=== PATIENT | male | born 1990 | race Caucasian/White ===

== ENCOUNTER 2018-04-19 11:17 | Emergency (ER) | payer SELFPAY | END 2018-04-19 12:26 | disposition home or self-care (01) | LOC: ERS 11:17 | DX: M25.572 Pain in left ankle and joints of left foot (principal); X50.1XXA Overexertion from prolonged static or awkward postures, initial encounter | CPT/HCPCS: 99283 ==

== ENCOUNTER 2018-05-16 09:32 | Outpatient (CLI) | payer BC ==
--- NOTE | 2018-05-16 10:13 | RAD ---
TWO VIEWS LEFT ANKLE: Comparison: None. History: Left ankle pain. FINDINGS: Three views of the left ankle shows evidence of acute fracture or dislocation. No soft tissue swellin g is seen. No degenerative changes are present. IMPRESSION: No evidence of acute osseous abnormality. POS: CAT
== END 2018-05-16 09:33 | disposition home or self-care (01) ==
LOC: BICRAD 09:32
PROVIDERS: ATTEND Family Medicine
DX: M25.572 Pain in left ankle and joints of left foot (principal)